=== PATIENT | female | born 1990 | race Caucasian/White ===

== ENCOUNTER → 2021-04-02 | Outpatient (CLI) | payer OTHER, BC ==
[~2021-04-02] MED LIST: HYDR-86 PO; LORA.5 PO; Norco 5-325 Ta1 EACH PO; ONDA4ODT
[2021-04-02 11:50] LABS: Source, Urine Clean Catch
[2021-04-02 13:28] LABS: Appearance, Urine Clear (Clear); Bilirubin, Urine Neg (Neg); Blood, Urine Neg (Neg); Color, Urine Yellow (P-Yellow); Glucose Qualitative, Urine Neg (Neg); Ketones, Urine 1+ (Neg); Leukocyte Esterase, Urine Neg (Neg); Nitrite, Urine Neg (Neg); Protein, Urine Neg (Neg); Urobilinogen, Urine NORM (Normal)
[2021-04-02 14:24] LABS: Candida species (DNA Probe) Negative (NEGATIVE); G. vaginalis (DNA Probe) Negative (NEGATIVE); T. vaginalis (DNA Probe) Negative (NEGATIVE)
== END | disposition home or self-care (01) ==
LOC: LAB 11:49 → LAB SHORT 11:49
PROVIDERS: Obstetrics & Gynecology
DX: R35.0 Frequency of micturition (principal); R10.2 Pelvic and perineal pain
CPT/HCPCS: 81003; 87480; 87510; 87660

== ENCOUNTER → 2021-09-01 | Outpatient (CLI) | payer OTHER, BC | END | disposition home or self-care (01) | LOC: LAB 11:08 → LAB SHORT 11:08 | DX: D22.5 Melanocytic nevi of trunk (principal) | CPT/HCPCS: 88305 ==

== ENCOUNTER → 2021-12-11 | Outpatient (CLI) | payer OTHER, BC | END | disposition home or self-care (01) | LOC: LAB SHORT 11:07 | DX: D48.5 Neoplasm of uncertain behavior of skin (principal) | CPT/HCPCS: 88305 ==

== ENCOUNTER → 2022-04-08 | Outpatient (CLI) | payer OTHER, BC ==
[2022-04-10 15:11] LABS: HPV 16 Negative (Negative); HPV 18 Negative (Negative); HPV OTHER HR TYPES Negative (Negative)
== END | disposition home or self-care (01) ==
LOC: LAB 17:05 → LAB SHORT 17:05
PROVIDERS: Advanced Practice Midwife
DX: Z01.419 Encounter for gynecological examination (general) (routine) without abnormal findings (principal)
CPT/HCPCS: 87624; G0123

== ENCOUNTER 2022-06-21 13:36 | Emergency (ER) | payer OTHER, BC ==
[~2022-06-21] VITALS: Ht 162.6 cm; Wt 77.1 kg
[2022-06-21 16:31] LABS: Source, Urine Clean Catch
[2022-06-21 16:34] LABS: BASOPHILS ABSOLUTE AUTO 0.03 K/mm3 (0.00-0.23); BASOPHILS PERCENT AUTO 0 % (0-2); EOSINOPHILS ABSOLUTE AUTO 0.14 K/mm3 (0.00-0.68); EOSINOPHILS PERCENT AUTO 2 % (0-6); Hematocrit 38.5 % (33.0-51.0); Hemoglobin 12.9 g/dL (11.5-16.0); IMMATURE GRAN ABSOLUTE AUTO 0.02 K/mm3 (0.00-0.10); IMMATURE GRAN PERCENT AUTO 0 % (0-1); LYMPHOCYTES ABSOLUTE AUTO 2.05 K/mm3 (0.84-5.20); LYMPHOCYTES PERCENT AUTO 28 % (21-46); MONOCYTES PERCENT AUTO 4 % (4-13); Mean Corpuscular HGB 28.3 pg (26.0-34.0); Mean Corpuscular HGB Conc 33.5 g/dL (31.5-36.5); Mean Corpuscular Volume 84 fL (80-100); Mean Platelet Volume 9.2 fL (9.1-12.4); NEUTROPHILS ABSOLUTE AUTO 4.89 K/mm3 (1.96-9.15); NEUTROPHILS PERCENT AUTO 66 % (41-73); Platelet Count 419 K/mm3 (150-400); RDW Standard Deviation 39.3 fL (35.1-46.3); Red Blood Cell Count 4.56 M/mm3 (3.80-5.20); White Blood Cell Count 7.43 K/mm3 (4.00-11.30)
[2022-06-21 16:36] LABS: Appearance, Urine Clear (Clear); Bilirubin, Urine Neg (Neg); Blood, Urine Neg (Neg); Color, Urine Yellow (P-Yellow); Glucose Qualitative, Urine Neg (Neg); Ketones, Urine 2+ (Neg); Leukocyte Esterase, Urine Neg (Neg); Nitrite, Urine Neg (Neg); Protein, Urine Neg (Neg); Urobilinogen, Urine NORM (Normal)
[2022-06-21 17:09] LABS: Bun/Creatinine Ratio 11.6 (12.0-20.0); Calcium, Blood 9.7 mg/dL (8.5-10.1); Creatinine, Blood 0.69 mg/dL (0.40-1.00); Potassium, Blood 3.6 mmol/L (3.5-5.5)
== END 2022-06-21 17:41 | disposition home or self-care (01) ==
LOC: ER 13:36
PROVIDERS: Physician Assistant
DX: O26.851 Spotting complicating pregnancy, first trimester (principal); Z3A.01 Less than 8 weeks gestation of pregnancy; Z87.891 Personal history of nicotine dependence
CPT/HCPCS: 36415; 80048; 81003; 84702; 85025; 86900; 86901; 96372; 99284-25; J2791

== ENCOUNTER 2022-07-02 11:42 | Emergency (ER) | payer OTHER, BC ==
[~2022-07-02] VITALS: Ht 162.6 cm; Wt 75.3 kg
[2022-07-02 16:50] LABS: BASOPHILS ABSOLUTE AUTO 0.03 K/mm3 (0.00-0.23); BASOPHILS PERCENT AUTO 0 % (0-2); EOSINOPHILS ABSOLUTE AUTO 0.11 K/mm3 (0.00-0.68); EOSINOPHILS PERCENT AUTO 1 % (0-6); Hematocrit 40.4 % (33.0-51.0); Hemoglobin 13.3 g/dL (11.5-16.0); IMMATURE GRAN ABSOLUTE AUTO 0.03 K/mm3 (0.00-0.10); IMMATURE GRAN PERCENT AUTO 0 % (0-1); LYMPHOCYTES ABSOLUTE AUTO 1.86 K/mm3 (0.84-5.20); LYMPHOCYTES PERCENT AUTO 21 % (21-46); MONOCYTES ABSOLUTE AUTO 0.35 K/mm3 (0.16-1.47); MONOCYTES PERCENT AUTO 4 % (4-13); Mean Corpuscular HGB 28.2 pg (26.0-34.0); Mean Corpuscular HGB Conc 32.9 g/dL (31.5-36.5); Mean Corpuscular Volume 86 fL (80-100); Mean Platelet Volume 9.4 fL (9.1-12.4); NEUTROPHILS ABSOLUTE AUTO 6.53 K/mm3 (1.96-9.15); NEUTROPHILS PERCENT AUTO 73 % (41-73); Platelet Count 367 K/mm3 (150-400); RDW Coefficient Variation 12.7 % (11.7-14.2); RDW Standard Deviation 39.7 fL (35.1-46.3); Red Blood Cell Count 4.71 M/mm3 (3.80-5.20); White Blood Cell Count 8.91 K/mm3 (4.00-11.30)
[2022-07-02 17:14] LABS: Albumin, Blood 3.7 g/dL (3.4-5.0); Albumin/Globulin Ratio 0.8 (0.8-1.8); Bilirubin, Total 0.3 mg/dL (0.1-1.0); Bun/Creatinine Ratio 8.8 (12.0-20.0); Calcium, Blood 9.6 mg/dL (8.5-10.1); Creatinine, Blood 0.57 mg/dL (0.40-1.00); Globulin, Blood 4.5 g/dL (2.2-4.0); Potassium, Blood 3.7 mmol/L (3.5-5.5); Total Protein, Blood 8.2 g/dL (6.4-8.2)
== END 2022-07-02 18:23 | disposition home or self-care (01) ==
LOC: ER 11:42
PROVIDERS: Student in an Organized Health Care Education/Training Program
DX: O99.891 Other specified diseases and conditions complicating pregnancy (principal); M54.89 Other dorsalgia; R00.2 Palpitations; Z87.891 Personal history of nicotine dependence; Z79.899 Other long term (current) drug therapy; Z3A.01 Less than 8 weeks gestation of pregnancy
CPT/HCPCS: 36415; 71045; 80053; 84484; 85025; 93005; 93010; 99284-25; A9270

== ENCOUNTER 2022-09-27 09:18 | Emergency (ER) | payer OTHER, BC ==
[~2022-09-27] VITALS: Ht 162.6 cm; Wt 78.9 kg
[2022-09-27 11:02] LABS: Source, Urine Clean Catch
[2022-09-27 11:37] LABS: Appearance, Urine Hazy (Clear); Bilirubin, Urine Neg (Neg); Blood, Urine Neg (Neg); Color, Urine Yellow (P-Yellow); Glucose Qualitative, Urine Neg (Neg); Ketones, Urine Neg (Neg); Leukocyte Esterase, Urine 2+ (Neg); Nitrite, Urine Neg (Neg); Protein, Urine Neg (Neg); Specific Gravity, Urine 1.015 (1.003-1.022); Urobilinogen, Urine NORM (Normal)
[2022-09-27 11:59] LABS: Bacteria Rare /hpf; Red Blood Cells, Urine Not Seen /hpf (0-2); Squamous Epithelial Cells Few /hpf (Few)
[2022-09-27] MEDS ORDERED: CEPH500 PO (12:16)
== END 2022-09-27 12:25 | disposition home or self-care (01) ==
LOC: ER 09:18
PROVIDERS: Physician Assistant
DX: O23.42 Unspecified infection of urinary tract in pregnancy, second trimester (principal); N39.0 Urinary tract infection, site not specified; Z3A.19 19 weeks gestation of pregnancy; Z87.891 Personal history of nicotine dependence
CPT/HCPCS: 76816; 81001

== ENCOUNTER → 2023-01-18 | Outpatient (CLI) | payer OTHER, BC ==
[~2023-01-18] MED LIST changes: +CEPH500 PO
== END ==
LOC: LAB SHORT 10:27
DX: O09.893 Supervision of other high risk pregnancies, third trimester (principal)
CPT/HCPCS: 87081; 87150

== ENCOUNTER 2023-02-15 05:41 | Inpatient (IN) | payer OTHER, BC ==
[~2023-02-15] VITALS: Ht 162.6 cm; Wt 84.1 kg
[2023-02-15] MEDS ORDERED: PRENATAL TABLE1 EAC2 PO (06:02)
[2023-02-15] MEDS ORDERED: MAGNESIUM OXID500 MG (06:03)
[2023-02-15] MEDS ORDERED: HUMULIN N100 UNIT/6 (06:03)
[2023-02-15 06:42] LABS: BASOPHILS ABSOLUTE AUTO 0.03 K/mm3 (0.00-0.23); BASOPHILS PERCENT AUTO 0 % (0-2); EOSINOPHILS ABSOLUTE AUTO 0.08 K/mm3 (0.00-0.68); EOSINOPHILS PERCENT AUTO 1 % (0-6); Hematocrit 38.3 % (33.0-51.0); Hemoglobin 12.3 g/dL (11.5-16.0); IMMATURE GRAN ABSOLUTE AUTO 0.13 K/mm3 (0.00-0.10); IMMATURE GRAN PERCENT AUTO 1 % (0-1); LYMPHOCYTES ABSOLUTE AUTO 1.99 K/mm3 (0.84-5.20); LYMPHOCYTES PERCENT AUTO 22 % (21-46); MONOCYTES ABSOLUTE AUTO 0.54 K/mm3 (0.16-1.47); MONOCYTES PERCENT AUTO 6 % (4-13); Mean Corpuscular HGB 26.7 pg (26.0-34.0); Mean Corpuscular HGB Conc 32.1 g/dL (31.5-36.5); Mean Corpuscular Volume 83 fL (80-100); Mean Platelet Volume 10.3 fL (9.1-12.4); NEUTROPHILS PERCENT AUTO 70 % (41-73); Platelet Count 304 K/mm3 (150-400); RDW Standard Deviation 47.9 fL (35.1-46.3); White Blood Cell Count 9.27 K/mm3 (4.00-11.30)
--- NOTE | 2023-02-16 13:30 | NUR ---
02/16/23 1330 Linda Lee PT ARRIVED TO OR WITH TRIMBLE IN PLACE, PREPPED IN NORMAL FASHION PER DR CERRATO FHT'S REASSURING PRIOR TO INCISION. VIABLE MALE INFANT DELIVERED AT 1315. HEAD 13.5 INCHES, CHEST 13.5 INCHES, LENGTH 21.75 INCHES. 9/9 APGARS. CORD BLOOD SENT WITH BABY RN ISABEL. NO GASES NEEDED PER DR CERRATO. NO PLACENTA TO PATH PER DR CERRATO. SEE POST OP MD NOTE FOR OPERATIVE DETAILS.
--- NOTE | 2023-02-17 07:02 | NUR ---
patient is awake and prepping to feed baby. All needs are met at this time.
[2023-02-17 08:08] LABS: BASOPHILS ABSOLUTE AUTO 0.03 K/mm3 (0.00-0.23); BASOPHILS PERCENT AUTO 0 % (0-2); EOSINOPHILS ABSOLUTE AUTO 0.04 K/mm3 (0.00-0.68); EOSINOPHILS PERCENT AUTO 0 % (0-6); Hematocrit 30.5 % (33.0-51.0); IMMATURE GRAN ABSOLUTE AUTO 0.07 K/mm3 (0.00-0.10); IMMATURE GRAN PERCENT AUTO 1 % (0-1); LYMPHOCYTES PERCENT AUTO 12 % (21-46); MONOCYTES ABSOLUTE AUTO 0.72 K/mm3 (0.16-1.47); MONOCYTES PERCENT AUTO 6 % (4-13); Mean Corpuscular HGB 27.6 pg (26.0-34.0); Mean Corpuscular HGB Conc 32.8 g/dL (31.5-36.5); Mean Corpuscular Volume 84 fL (80-100); NEUTROPHILS ABSOLUTE AUTO 10.41 K/mm3 (1.96-9.15); NEUTROPHILS PERCENT AUTO 82 % (41-73); Platelet Count 266 K/mm3 (150-400); RDW Coefficient Variation 16.1 % (11.7-14.2); RDW Standard Deviation 49.5 fL (35.1-46.3); Red Blood Cell Count 3.62 M/mm3 (3.80-5.20); White Blood Cell Count 12.77 K/mm3 (4.00-11.30)
[2023-02-18] MEDS ORDERED: ACET500 PO (09:13)
[2023-02-18] MEDS ORDERED: IBUP800 PO (09:13)
[2023-02-18] MEDS ORDERED: OXAYDO5 M1 PO (09:14)
--- NOTE | 2023-02-18 11:24 | NUR ---
DC INSTRUCTINOS GONE OVER WITH PT, DENIES ANY QUESTIONS, WILL MAKE APPT IN 7-10 DAYS WITH [facility] FOR [facility] STRIP/INCISION REMOVAL/CHECK HAS LISTOF WHEN TOOK LAST MEDS AND HOW OFTEN SHE CAN HAVE THEM. HAS COPY OF DC INSTRUCTIONS AND PPFU APPOINTMENT FOR TRICE. ENCOURAGED TO CALL WITH QUESTIONS
--- NOTE | 2023-02-18 11:40 | NUR ---
DC HOME WITH BABY, DENIES ANYQUESTIONS, AMBULATE OUT
== END 2023-02-18 11:33 | disposition home or self-care (01) | DRG 787 ==
LOC: BC 05:47
PROVIDERS: Family Medicine; ADMIT Obstetrics & Gynecology
PROC: 10D00Z1 Extraction of Products of Conception, Low, Open Approach (ICD-10-PCS; principal; 2023-02-16 12:30)
DX: O34.211 Maternal care for low transverse scar from previous cesarean delivery (principal); D62 Acute posthemorrhagic anemia; Z37.0 Single live birth; O24.429 Gestational diabetes mellitus in childbirth, unspecified control; O66.41 Failed attempted vaginal birth after previous cesarean delivery; O90.81 Anemia of the puerperium; Z87.891 Personal history of nicotine dependence; Z91.011 Allergy to milk products; Z91.018 Allergy to other foods; Z79.899 Other long term (current) drug therapy; Z79.4 Long term (current) use of insulin; Z3A.39 39 weeks gestation of pregnancy
CPT/HCPCS: 36415; 36416; 51702; 59200; 82947; 85025; 85460; 86850; 86900; 86901; 86923; 96372; A9270; J0456; J0690; J1885; J2405; J2590; J2765; J2791; J3010; J7050; J7120

== ENCOUNTER → 2025-08-21 | Outpatient (CLI) | payer BC, OTHER ==
[~2025-08-21] MED LIST changes: +ACET500 PO; +HUMULIN N100 UNIT/6; +IBUP800 PO; +MAGNESIUM OXID500 MG; +OXAYDO5 M1 PO; +PRENATAL TABLE1 EAC2 PO
== END ==
LOC: LAB 11:14 → LAB SHORT 11:14
PROVIDERS: Advanced Practice Midwife
DX: Z01.419 Encounter for gynecological examination (general) (routine) without abnormal findings (principal)
CPT/HCPCS: 87624; G0145